=== PATIENT | female | born 1990 | race Caucasian/White ===

== ENCOUNTER 2017-08-14 20:31 | Emergency (ER) | payer MEDICAID ==
[~2017-08-14] VITALS: Ht 172.7 cm; Wt 108.9 kg
[2017-08-14 20:35] VITALS: BP_SYST 150
--- NOTE | 2017-08-14 20:42 | NUR ---
Patient to ER bed 8 to gown for evaluation. Side rails up. Report given to JORGE IGNACIO.
--- NOTE | 2017-08-14 20:53 | NUR ---
Pt states she has been coughing since last friday, hit her head on friday, states when she coughs her head hurts, non-radiating, 7/10 while coughing. States her left eye was blurry earlier today and currently feels pressure. Afebrile. No N/V/D. No sob or distress. Safety precautions in place, will continue to monitor.
--- NOTE | 2017-08-14 21:10 | NUR ---
ER Dr. Richmond at bedside examining patient.
[2017-08-14 21:40] LABS: BASOPHILS % (AUTO) 0.4 % (0.0-2.0); EOSINOPHILS # (AUTO) 0.3 K/uL (0.0-0.4); EOSINOPHILS % (AUTO) 3.8 % (0.0-4.0); HEMATOCRIT 44.5 % (36-48); HEMOGLOBIN 14.7 g/dL (12.0-16.0); LYMPHOCYTES # (AUTO) 2.6 K/uL (1.0-5.5); LYMPHOCYTES % (AUTO) 35.4 % (20.5-51.5); MEAN CORPUSCULAR HEMOGLOBIN 29 pg (27-31); MEAN CORPUSCULAR HGB CONC 33 % (32-36); MEAN CORPUSCULAR VOLUME 87 fL (79.0-98.0); MONOCYTES # (AUTO) 0.6 K/uL (0.0-1.0); MONOCYTES % (AUTO) 7.6 % (1.7-9.3); NEUTROPHILS # (AUTO) 3.9 K/uL (1.8-7.7); NEUTROPHILS % (AUTO) 52.8 % (40.0-70.0); PLATELET COUNT (AUTO) 210 K/uL (130-430); RED BLOOD CELL COUNT(AUTO) 5.14 MIL/uL (4.2-6.2); RED CELL DISTRIBUTION WIDTH 13.5 % (9.0-15.0); WHITE BLOOD COUNT (AUTO) 7.4 K/uL (4.8-10.8)
[2017-08-14 21:53] LABS: CALCIUM 9.5 mg/dL (8.4-11.0); CREATININE 0.69 mg/dL (0.55-1.30); POTASSIUM 3.7 mmol/L (3.5-5.1)
[2017-08-14 22:30] VITALS: BP_SYST 140
--- NOTE | 2017-08-14 22:30 | NUR ---
Patient given written and verbal discharge instructions and verbalizes understanding. ER MD Dr. Richmond discussed with patient the results and treatment provided. Patient in stable condition. ID arm band removed. Patient educated on pain management and to follow up with PMD. Pain Scale 2/10, pt states pain is tolerable, ambulated w/ steady gait. Opportunity for questions provided and answered.
== END 2017-08-14 22:30 | disposition home or self-care (01) ==
LOC: SED 20:31
DX: T14.90XA Injury, unspecified, initial encounter (principal); J06.9 Acute upper respiratory infection, unspecified; R03.0 Elevated blood-pressure reading, without diagnosis of hypertension; W22.8XXA Striking against or struck by other objects, initial encounter; Y93.89 Activity, other specified; Y92.89 Other specified places as the place of occurrence of the external cause; Y99.8 Other external cause status
CPT/HCPCS: 36415; 70450-TC; 80048; 85025; 99285

== ENCOUNTER 2018-03-25 15:44 | Emergency (ER) | payer MEDICAID ==
[~2018-03-25] VITALS: Ht 170.2 cm; Wt 99.8 kg
[2018-03-25 15:52] VITALS: BP_SYST 141
[2018-03-25] MEDS ORDERED: IBUPROFEN 800 MG TABLET PO ONE (16:00)
[2018-03-25 16:42] VITALS: BP_SYST 131
== END 2018-03-25 16:39 | disposition home or self-care (01) ==
LOC: SED 15:44
DX: J02.0 Streptococcal pharyngitis (principal)
CPT/HCPCS: 36415; 86403; 87081; 99284